=== PATIENT | male | born 1970 | race Caucasian/White ===

== ENCOUNTER → 2022-06-02 14:04 | Outpatient (CLI) | payer OTHER, SELFPAY ==
--- NOTE | ~2022-06-02 | CT_ITS ---
EXAMINATION:CT lung screening DATE: 06/02/2022 14:36 INDICATION: Posterior history of tobacco use. Current smoker with 30 pack year history. TECHNIQUE: Computed tomography (CT) of the chest was performed without intravenous contrast. Automate d exposure control and iterative reconstruction technique were employed. The dose-length product (DLP ) was 168.78 mGy-cm. COMPARISON: CT abdomen and pelvis 05/07/2006 FINDINGS: There is mild emphysema. There is a 5 mm nodule in right lower lobe. There is mild atelecta sis bilaterally. No pleural effusion. The heart size is normal. There are coronary artery calcificati ons. No pericardial effusion. There is mild thoracic spondylosis. IMPRESSION: 1. Lung-RADS category 2: Benign appearance or behavior. Continue annual screening with noncontrast lo w-dose chest CT in 12 months. Reviewed, dictated and finalized at location A. ADJUSTER IMPRESSION: 1. Lung-RADS category 2: Benign appearance or behavior. Continue annual screeni ng with noncontrast low-dose chest CT in 12 months.
== END ==
PROVIDERS: PCP Family Medicine; Visit Provider Family Medicine
DX: Z12.2 Encounter for screening for malignant neoplasm of respiratory organs (principal); F17.210 Nicotine dependence, cigarettes, uncomplicated
CPT/HCPCS: 71271

== ENCOUNTER 2022-06-02 14:56 | Outpatient (CLI) | payer OTHER, SELFPAY ==
[2022-06-02 18:57] LABS: Alanine Aminotransferase 42 U/L (6-50); Albumin Level 4.4 g/dL (3.5-5.1); Alkaline Phosphatase 68 U/L (38-126); Anion Gap 7 mmol/L (8-16); Aspartate Amino Transferase 46 U/L (17-59); Bilirubin,Total 0.4 mg/dL (0.2-1.3); Blood Urea Nitrogen 12 mg/dL (9-20); Calcium 8.8 mg/dL (8.4-10.2); Carbon Dioxide 26 mmol/L (22-30); Chloride 107 mmol/L (98-107); Cholesterol 232 mg/dL (0-200); Estimated Glomerular Filt Rate > 60; Glucose 107 mg/dL (65-110); HDL Direct 43 mg/dL; Potassium 4.2 mmol/L (3.4-5.0); Sodium 140 mmol/L (137-145); Triglycerides 137 mg/dL (<150)
[2022-06-02 19:07] LABS: LDL Cholesterol Direct 143 mg/dL
[2022-06-02 19:08] LABS: Basophils Absolute Auto 0.1 K/mm3 (0.0-0.1); Basophils Percent Auto 0.5 % (0.2-1.2); Eosinophils Absolute Auto 0.1 K/mm3 (0-0.3); Eosinophils Percent Auto 0.8 % (0-4.4); Hematocrit 47.5 % (42.0-52.0); Hemoglobin 15.8 g/dL (14.0-18.0); Immature Granulocyte Absolute 0.04 K/mm3 (0.00-0.031); Immature Granulocyte Percent A 0.3 % (0-0.5); Lymphocytes Absolute Auto 2.33 K/mm3 (0.9-3.2); Lymphocytes Percent Auto 17.5 % (18.3-44.2); Mean Corpuscular HGB Conc 33.3 g/dl (32-36); Mean Corpuscular Hemoglobin 32.3 pg (26-34); Mean Corpuscular Volume 97.1 fl (80-100); Mean Platelet Volume 9.7 fl (7.4-10.4); Monocytes Absolute Auto 1.2 K/mm3 (0.1-0.6); Monocytes Percent Auto 8.7 % (2.6-8.5); Neutrophils Absolute Auto 9.6 K/mm3 (1.3-6.7); Neutrophils Percent Auto 72.2 % (45.5-73.1); Platelet Count Result 340 k/mm3 (150-375); Red Blood Count 4.89 M/mm3 (4.6-6.20); Red Cell Distribution Width 14.1 % (11.5-14.5); White Blood Count 13.3 K/mm3 (4.5-10.0)
[2022-06-02 19:29] LABS: Prostate Specific Antigen 1.1 ng/mL (< OR = 4.0)
== END 2022-06-02 14:57 | disposition home or self-care (01) ==
LOC: ANHBWCLAB 14:57
PROVIDERS: PCP Family Medicine; Visit Provider Family Medicine
DX: Z00.00 Encounter for general adult medical examination without abnormal findings (principal)
CPT/HCPCS: 36415; 80053; 80061; 84153; 85025; G0103

== ENCOUNTER 2023-10-08 07:44 | Outpatient (CLI) | payer OTHER, SELFPAY ==
[2023-10-08 19:04] LABS: Hematocrit 50.4 % (42.0-52.0); Hemoglobin 16.3 g/dL (14.0-18.0); Mean Corpuscular HGB Conc 32.3 g/dl (32-36); Mean Corpuscular Hemoglobin 31.3 pg (26-34); Mean Corpuscular Volume 96.9 fl (80-100); Mean Platelet Volume 9.8 fl (7.4-10.4); Platelet Count Result 312 k/mm3 (150-375); Red Cell Distribution Width 14.4 % (11.5-14.5); White Blood Count 5.9 K/mm3 (4.5-10.0)
[2023-10-08 19:27] LABS: Alanine Aminotransferase 30 U/L (6-50); Albumin Level 4.4 g/dL (3.5-5.1); Alkaline Phosphatase 60 U/L (38-126); Anion Gap 9 mmol/L (4-12); Aspartate Amino Transferase 61 U/L (17-59); Bilirubin,Total 0.6 mg/dL (0.2-1.3); Blood Urea Nitrogen 16 mg/dL (9-20); Calcium 9.6 mg/dL (8.4-10.2); Carbon Dioxide 20 mmol/L (22-30); Chloride 110 mmol/L (98-107); Cholesterol 214 mg/dL (0-200); Estimated Glomerular Filt Rate > 60; Glucose 111 mg/dL (65-110); HDL Direct 45 mg/dL; Potassium 4.3 mmol/L (3.4-5.0); Sodium 139 mmol/L (137-145); Triglycerides 138 mg/dL (<150)
[2023-10-08 19:44] LABS: LDL Cholesterol Direct 138 mg/dL
[2023-10-08 20:00] LABS: Prostate Specific Antigen 1.2 ng/mL (< OR = 4.0)
[2023-10-08 20:34] LABS: Folic Acid 7.4 ng/mL (2.76->20)
[2023-10-13 15:43] LABS: Testosterone Free 87.4 pg/mL (35.0-155.0); Testosterone Total 447 ng/dL (250-1100)
== END 2023-10-08 07:45 | disposition home or self-care (01) ==
LOC: ANHBWCLAB 07:46
PROVIDERS: PCP Nurse Practitioner Adult Health; Visit Provider Nurse Practitioner Adult Health
DX: R53.83 Other fatigue (principal); Z13.9 Encounter for screening, unspecified; Z12.5 Encounter for screening for malignant neoplasm of prostate
CPT/HCPCS: 36415; 80053; 80061; 82607; 82746; 84153; 84402; 84403; 84443; 85027; G0103

== ENCOUNTER 2025-04-18 13:21 | Outpatient (CLI) | payer OTHER, SELFPAY ==
--- OUTSIDE RECORDS SUMMARY | 2025-04-18 15:17 | XMS_ITS | Encounter Summary ---
Author Organization [facility] Healthcare Address [address] [place] [address] Care Team Providers Care Waste Oil Pumper Name Role Phone Asmita Concepcion DO Primary Care Provider [phone] No, Physician Primary Care Provider [phone] Encounter Details Date Type Department Care Team (Late st Contact Info) Description 09/17/2020 Telephone [facility] [address] [place] [id number] Candace Urbano, RT Social History Tobacco Use Types Packs/Day Years Used Date Smoking Tobacco: Every Day Cigarettes 1.5 40.8 Started: 06/22/1984 Smokeless Tobacco: Never Alcohol Use Standard Drinks/Week Comments Yes 5 (1 standard drink = 0.6 oz pur e alcohol) PHQ-2 Answer Date Recorded PHQ-2 Total Score (If total score is 3 or more points, staff should administer the PHQ-9) 0 08/02/2020 Sex and Gender Information Value Date Recorded Sex Assigned at Not on file Legal Sex Male 5:58 

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
--- OUTSIDE RECORDS SUMMARY | 2025-04-18 15:17 | XMS_ITS | Clinical Summary ---
Author Organization [facility] Address [address] [place] [address] Care Team Providers Care Application Internship Name Role Phone No, Physician Primary Care Provider [phone] Allergies No known active allergies Medications esomeprazole DR (NexIUM) 20 mg capsule Take 20 mg by mouth daily before breakfast Active varenicline (CHANTIX) 1 mg tabletIndicatio ns:Smoking Cessation Take 1 tablet (1 mg total) by mouth 2 (two) times a day Take with full glass of water. 60 tablet 4 Active varenicline (CHANTIX TISH) 0.5 mg (11)- 1 mg (42) tablet Take 1 mg by mouth 2 (two) times a day Active aspirin 81 mg enteric coated tabletIndicatio ns:prevention of thrombosis Take 81 mg by mouth daily Active Active Problems Problem Noted Date Diagnosed Date Asymptomatic microscopic hematuria 08/30/2020 Personal history of tobacco use, presenting hazards to health 08/30/2020 Screen for colon cancer 08/03/2020 Overview (08/03/2020): Added automatically from request for surgery [id number] Thickening of esophagus 08/03/2020 Overview (09/21/2020): Added automatically from request for surgery [id number] Bilateral hand pain 08/02/2020 Assessment & Plan (08/02/2020 10:13 AM VISITOR SERVICES SPECIALIST): X-rays ordered. Labs ordered. May use [id number] pain reliever of choice as needed. Pain in multiple finger joints 08/02/2020 Assessment & Plan (08/02/2020 10:13 AM VISITOR SERVICES SPECIALIST): No known family history of rheumatoid arthritis. Labs ordered. X-rays ordered. Cigarette nicotine dependence without complicati on 08/02/2020 Assessment & Plan (08/02/2020 10:14 AM VISITOR SERVICES SPECIALIST): Advised patient to quit smoking. Patient reports that he is ready to try. Chantix prescription written. Patient to notify our office in 3 weeks for new prescription for maintenance dose. Immunizations Immunization Administration Dates Next Due Influenza, Quadrivalent, Spl it, Intramuscular 05/05/2018 Influenza, Quadrivalent, Spl it, Preservative Free, Intramuscular 2021 Influenza, Unspecified 03/22/2020(Deferred: Windy ent Refused) Tdap 11/29/2016 Surgical History Surgery Date Site/Laterality Comments COLONOSCOPY 11/05/2020 Medical History Medical History Date Comments Hematuria GERD (gastroesophageal reflux disease) Social History Tobacco Use Types Packs/Day Years Used Date Smoking Tobacco: Every Day Cigarettes 1.5 40.8 Started: 06/22/1984 Smokeless Tobacco: Never Tobacco Cessation:Ready to Q uit: Yes; Counseling Given: Yes Alcohol Use Standard Drinks/Week Comments Yes 5 (1 standard drink = 0.6 oz pur e alcohol) PHQ-2 Answer Date Recorded PHQ-2 Total Score (If total score is 3 or more points, staff should administer the PHQ-9) 0 08/02/2020 Personal Safety Answer Date Recorded Getting School Help Needed Not on file 08/16 Sex and Gender Information Value Date Recorded Sex Assigned at Not on file Legal Sex Male 5:58 PM VISITOR SERVICES SPECIALIST Gender Identity Not on file Sexual Orientation Straight 07/31/2020 7: 50 PM VISITOR SERVICES SPECIALIST Obstetrics History Last Filed Vital Signs Vital Sign Reading Time Taken Comments Blood Pressure 130/82 04/18/2021 10:46 AM CDT Pulse 77 04/18/2021 10:46 AM CDT Temperature 37.2 C (98.9 F) 04/18/2021 10:46 AM CDT Respiratory Rate 12 04/18/2021 10:46 AM CDT Oxygen Saturation 96% 04/18/2021 10:46 AM CDT Inhaled Oxygen Concentration - - Weight 90.7 kg (200 lb) 04/18/2021 10:46 AM CDT Height 167.6 cm (5' 6) 04/18/2021 10:46 AM CDT Body Mass Index 32.28 04/18/2021 10:46 AM CDT Plan of Treatment Health Maintenance Due Date Last Done Comments Prostate Cancer Screening-PSA 1970 Hepatitis B Screening 1987 Pneumococcal vaccine <65 (1 of 2 - PCV) 1988 Zoster Vaccine (1 of 2) 2019 Depression Screening 08/02/2021 08/02/2020 Regular Well Visit/Exam 18-64 08/02/2021 08/02/2020 Covid-19 Vaccine ( season) 2025, 05/28/2021 Influenza Vaccine (#1) 2025 2021, 2017 DTaP/Tdap/Td Vaccine (2 - Td or Tdap) 11/29/202603/2017 Colon Cancer Screening-Colonoscopy 11/05/20302020 Hepatitis C Screening Completed 08/02/2020 Procedures Procedure Name Priority Date/Time Associated Diagnosis Comments COLONOSCOPY 11/05/2020 10:29 AM CDT HEPATITIS C ANTIBODY Routine 08/02/2020 9:05 AM VISITOR SERVICES SPECIALIST Encounter for hepatitis C screening test for low risk patient from Last 3 Months or Most Recently Relevant to Health Maintenance Results * COLONOSCOPY (11/05/2020 10:29 AM CDT) Anatomical Region Laterality Modality Other Narrative Procedure Note Cullen Smiley MD - 11/05/2020 10:29 AM CDT [facility] Patient Name: Hugo Headley Procedure Date: 11/05/2020 10:29 AM Date of : 1970 Admit Type: Outpatient Age: 50 Gender: Male Attending MD: Cullen Smiley M.D. Room: [facility] ENDOSCOPY ROOM 1 Note Status: Finalized Patient Profile: This is a 50 year old male. No family h/o colon cancer. Screening. Procedure: Colonoscopy Indications: Screening for colorectal malignant neoplasm, Thisis the patient's first colonoscopy Referring MD: Asmita Concepcion D.O. Providers: Cullen Smiley M.D. Impression: - The entire examined colon is normal. - No specimens collected. Recommendation: - Continue present medications. - Repeat colonoscopy in 10 years for screening purposes. Medicines: Monitored Anesthesia Care Complications: No immediate complications. Estimated Blood Loss: Estimated blood loss: none. Procedure: Pre-Anesthesia Assessment: - Prior to the procedure, a History and Physicalwas performed, and patient medications and allergieswere reviewed. The patient's tolerance of previous anesthesia was also reviewed. The risks andbenefits of the procedure and the sedation options and risks were discussed with the patient. All questions were answered, and informed consent was obtained. Prior Anticoagulants: The patient has taken no previous anticoagulant or antiplatelet agents. ASA Grade Assessment: II - A patient with mild systemicdisease. After reviewing the risks and benefits, the patient was deemed in satisfactory condition to undergo the procedure. - Prior to the procedure, a History and Physicalwas performed, and patient medications and allergieswere reviewed. The patient's tolerance of previous anesthesia was also reviewed. The risks andbenefits of the procedure and the sedation options and risks were discussed with the patient. All questions were answered, and informed consent was obtained. Prior Anticoagulants: The patient has taken no previous anticoagulant or antiplatelet agents. ASA Grade Assessment: II - A patient with mild systemicdisease. After reviewing the risks and benefits, the patient was deemed in satisfactory condition to undergo the procedure. The benefits, risks and alternatives of theprocedure and sedation were discussed and informed consentwas obtained. All questions were answered. Please referto the signed informed consent document in the medical record. The bowel preparation used was Miralax and bisacodyl tablets via split dose instruction. The scope was passed under direct vision. The Pediatric Colonoscope [id number]-[id number] was introducedthrough the anus and advanced to the the cecum, identifiedby appendiceal orifice and ileocecal valve. Thequality of the bowel preparation was excellent. Bowel prepwas administered using a split dose. Findings: The perianal and digital rectal examinations were normal. The cecum appeared normal. The colon (entire examined portion) appeared normal. No polyps and no mass lesions. The rectum appeared normal. Electronically signed by Cullen Smiley M.D. Cullen Smiley M.D. 11/05/2020 11:51:40 AM Number of Addenda: 0 Note Initiated On: 11/05/2020 10:29 AM Procedure Code(s): --- Professional --- 47231, Colonoscopy, flexible; diagnostic, including collection of specimen(s) by brushing or washing, when performed (separateprocedure) Diagnosis Code(s): --- Professional --- Z12.11, Encounter for screening for malignant neoplasm of colon CPT copyright 2019 [employer] [place] [employer]. All rights reserved. The codes documented in this report are preliminary and upon paint trimmer pipe bowls reviewmay be revised to meet current compliance requirements. Recognized by the [place] [employer] [place] [employer] for promoting quality in endoscopy us Cullen Smiley MD ENDOSCOPY PROCEDURES Final Result * Hepatitis C antibody (08/02/2020 9:05 AM VISITOR SERVICES SPECIALIST) Hep C Ab Nonreactive Nonreactive [facility] ROMAN ([place]) Comment: Interpretive Data Nonreactive: Antibodies to HCV not detected. Does NOT exclude the possibility of recent exposure to HCV. Equivocal: Equivocal for HCV antibodies. Supplemental molecular testing will be automatically performed to determine infection status in accordance with current CDC screening recommendations. Reactive: Positive for HCV antibodies. This may represent current or past HCV infection. Supplemental molecular testing will be automatically performed to determine current infection status in accordance with current CDC screening recommendations. Interpretive data was last revised on 2019. Testing performed by: [facility], [address] [place] [address], [place]., [address] Blood specimen (specimen) 08/02/2020 9:05 AM VISITOR SERVICES SPECIALIST 08/02/2020 1:43 PM VISITOR SERVICES SPECIALIST us Asmita Concepcion DO LAB MICROBIOLOGY - GENERAL ORDERABLES Final Result [facility]ENS ([place]) [facility] Department [place] [address] from Last 3 Months or Most Recently Relevant to Health Maintenance Insurance [employer] SIG [id number] [facility] A[employer] SIGNATURE Advance Directives For more information, please contact: [phone] * Full Code (Latest Code Status on File) Date Activated Date Inactivated Comments 11/05/2020 10:36 AM 11/05/2020 5:36 PM * Full Code Date Activated Date Inactivated Comments 11/05/2020 10:36 AM 11/05/2020 10:36 AM Care Teams Application Internship Relationship Specialty Start Date End Date No, Physician PCP - General 11/28/21
[2025-04-18 19:09] LABS: Alanine Aminotransferase 35 U/L (6-50); Albumin Level 4.9 g/dL (3.5-5.1); Alkaline Phosphatase 67 U/L (38-126); Anion Gap 9 mmol/L (4-12); Aspartate Amino Transferase 88 U/L (17-59); Bilirubin,Total 0.5 mg/dL (0.2-1.3); Blood Urea Nitrogen 17 mg/dL (9-20); Calcium 9.6 mg/dL (8.4-10.2); Carbon Dioxide 26 mmol/L (22-30); Chloride 102 mmol/L (98-107); Cholesterol 236 mg/dL (0-200); Estimated Glomerular Filt Rate > 60; Glucose 95 mg/dL (65-110); HDL Direct 56 mg/dL; Potassium 4.5 mmol/L (3.4-5.0); Sodium 137 mmol/L (137-145); Total Protein 7.9 g/dL (6.3-8.2); Triglycerides 114 mg/dL (<150)
[2025-04-18 19:26] LABS: Hematocrit 48.5 % (42.0-52.0); Hemoglobin 16.3 g/dL (14.0-18.0); Mean Corpuscular HGB Conc 33.6 g/dl (32-36); Mean Corpuscular Hemoglobin 32.0 pg (26-34); Mean Corpuscular Volume 95.3 fl (80-100); Platelet Count Result 346 k/mm3 (150-375); Red Blood Count 5.09 M/mm3 (4.6-6.20); White Blood Count 8.3 K/mm3 (4.5-10.0)
[2025-04-18 19:46] LABS: Prostate Specific Antigen 1.1 ng/mL (< OR = 4.0); Thyroid Stimulating Hormone 1.990 uIU/mL (0.465-4.680)
[2025-04-18 20:06] LABS: Vitamin B12 681.0 pg/mL (239-931)
== END 2025-04-18 13:22 | disposition home or self-care (01) ==
LOC: ANHBWCLAB 13:22
PROVIDERS: PCP Nurse Practitioner Adult Health; Visit Provider Nurse Practitioner Adult Health
DX: Z00.00 Encounter for general adult medical examination without abnormal findings (principal); Z12.5 Encounter for screening for malignant neoplasm of prostate; Z51.81 Encounter for therapeutic drug level monitoring
CPT/HCPCS: 36415; 80053; 80061; 82607; 84153; 84443; 85027; G0103